=== PATIENT | male | born 1990 | race Caucasian/White ===

== ENCOUNTER 2017-06-24 18:38 | Emergency (ER) | payer OTHER ==
[~2017-06-24] VITALS: Ht 177.8 cm; Wt 65.8 kg
[~2017-06-24 18:38] MED LIST: ALPR-411 PO; COAGULATION FACTOR IX; OXYC-57 PO
[2017-06-24 18:42] VITALS: TEMP 36.7; Ht 177.8 cm; Wt 65.8 kg
[2017-06-24] MEDS ORDERED: ALPR1TAB3 PO (19:32)
[2017-06-24] MEDS ORDERED: OXYCODONE HCL IR 5 MG TAB (IMMEDIATE RELEASE) PO STA (19:43)
--- NOTE | 2017-06-24 20:34 | DIAGNOSTIC IMAGING REPORT ---
R HUMERUS MIN 2 VIEWS ROUTINE CLINICAL HISTORY: Right humeral pain status post trauma COMPARISON: None. DISCUSSION: No fractures or dislocations are visualized. IMPRESSION: No fractures identified. Electronically signed by: Rolando Roberts M.D. 06/24/2017 8:33 PM Dictated Date/Time: 06/24/2017 8:32 PM
--- NOTE | 2017-06-24 20:34 | DIAGNOSTIC IMAGING REPORT ---
R SCAPULA CLINICAL HISTORY: Right scapular pain status post trauma COMPARISON: None. DISCUSSION: No acute fractures are visualized on conventional radiographic imaging. IMPRESSION: No fractures identified. Electronically signed by: Rolando Roberts M.D. 06/24/2017 8:32 PM Dictated Date/Time: 06/24/2017 8:32 PM
--- NOTE | 2017-06-24 20:35 | DIAGNOSTIC IMAGING REPORT ---
R SHOULDER 3 VIEWS ROUTINE CLINICAL HISTORY: Right shoulder pain status post trauma COMPARISON: None. DISCUSSION: No fractures or dislocations are visualized. IMPRESSION: No fractures identified. Electronically signed by: Rolando Roberts M.D. 06/24/2017 8:33 PM Dictated Date/Time: 06/24/2017 8:33 PM
--- NOTE | 2017-06-24 20:36 | DIAGNOSTIC IMAGING REPORT ---
R FOREARM 2 VIEWS ROUTINE CLINICAL HISTORY: Right forearm pain status post trauma COMPARISON: None. DISCUSSION: No fractures or dislocations are visualized. There is mild ulnar minus variance. IMPRESSION: No fractures identified. Electronically signed by: Rolando Roberts M.D. 06/24/2017 8:34 PM Dictated Date/Time: 06/24/2017 8:34 PM
--- NOTE | 2017-06-24 20:37 | DIAGNOSTIC IMAGING REPORT ---
R ELBOW MIN 3 VIEWS ROUTINE CLINICAL HISTORY: Right elbow pain status post trauma COMPARISON: None. DISCUSSION: The fat pads are not displaced. No fractures or dislocations are visualized. IMPRESSION: No fractures or dislocations identified Electronically signed by: Rolando Roberts M.D. 06/24/2017 8:35 PM Dictated Date/Time: 06/24/2017 8:35 PM
--- NOTE | 2017-06-24 20:48 | DIAGNOSTIC IMAGING REPORT ---
CT OF THE CERVICAL SPINE CLINICAL HISTORY: Neck pain status post trauma COMPARISON STUDY: November 2012 CT DOSE: TECHNIQUE: CT scan of the cervical spine was performed from the skull base to the thoracic inlet. Images are reviewed in the axial, sagittal, and coronal planes. IV contrast was not administered for this examination. A dose lowering technique was utilized adhering to the principles of ALARA. FINDINGS: The visualized portions of the lung apices reveal no evidence of pneumothorax. There is apical emphysema. The prevertebral soft tissues are normal. No fractures or subluxations are visualized. There are mild degenerative changes most pronounced at the C5-6 and C6-7 levels. IMPRESSION: 1. No evidence of acute fracture or traumatic subluxation 2. Apical emphysema Electronically signed by: Rolando Roberts M.D. 06/24/2017 8:47 PM Dictated Date/Time: 06/24/2017 8:46 PM
--- NOTE | 2017-06-24 20:52 | DIAGNOSTIC IMAGING REPORT ---
CT THORACIC SPINE WITHOUT CT DOSE: 965.49 mGy.cm CLINICAL HISTORY: Thoracic spine pain status post trauma TECHNIQUE: Helical images were acquired in the transverse plane. Sagittal and coronal reformatted images were acquired A dose lowering technique was utilized adhering to the principles of ALARA. COMPARISON STUDY: November 2012 FINDINGS: No paraspinal masses are visualized. No fractures or traumatic subluxations are visualized. There are no pleural effusions. There are biapical blebs IMPRESSION: 1. No acute fractures or traumatic subluxations 2. Biapical blebs Electronically signed by: Rolando Roberts M.D. 06/24/2017 8:50 PM Dictated Date/Time: 06/24/2017 8:47 PM
[2017-06-24] MEDS ORDERED: ONDANSETRON INJ 2 MG/ML 2 ML VIAL IV STA (21:17)
[2017-06-24] MEDS ORDERED: LACTATED RINGER'S 1000ML 1,000 ML IV ONE (21:30)
[2017-06-24] MEDS ORDERED: FENTANYL CITRATE INJ 50 MCG/1 ML 2 ML VIAL IV ONE (21:30)
[2017-06-24] MEDS ORDERED: PROTHROMBIN COMP CONC- KCENTRA 2,500 UNIT in SYRINGE 0 ML IV SCH (22:00)
[2017-06-24 22:14] LABS: ISTAT CREATININE 1.2 mg/dl (0.6-1.3); ISTAT HEMOGLOBIN 14.6 g/dl (14.0-18.0); ISTAT IONIZED CALCIUM 1.2 mmol/l (1.12-1.32)
--- NOTE | 2017-06-24 22:28 | EMERGENCY ROOM VISIT NOTE ---
ED Visit Note First contact with patient: 19:32 Chief Complaint: I'm having severe shoulder and back pain. History of Present Illness: Mr. Llanes is a 27-year-old white male who ambulates into the ED accompanied by his mother complaining of cervical and thoracic back pain and right upper extremity pain. 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 He reports that approximately 1 PM this afternoon, approximately 5-6 hours ago, he was climbing over the fence to catch a toy slipped on wet grass and fell onto his back and shoulder. He reports at the time of the injury he did not strike his head or have a loss of consciousness and since the injury he reports he is not having any signs of head injury. Currently he is complaining of severe cervical and thoracic pain and pain throughout the entire right upper extremity from his shoulder to his wrist. He describes his pain as sharp and throbbing. He rates his discomfort 9/10. His pain is nonradiating. His pain worsens with palpation in all movements of the shoulder and elbow. He has not identified any alleviating factors related to the pain. He has not taken any medications for pain or seem hemophilia. Associated with his pain he reports he has a numbness sensation throughout the shoulder and the upper arm that extends into the elbow. He denies headache, dizziness, lightheadedness, visual changes, hearing changes , difficulty speaking, difficulty swallowing, difficulty ambulating, lumbar back pain, chest pain, shortness of breath, abdominal pain, nausea, vomiting, lower extremity weakness/numbness/tingling. Review of Systems: As noted above in history of present illness. All body systems were reviewed and found to be negative as noted above. Past Medical History: As noted above, status post unspecified fasciotomy Current Medications: Xanax. Allergies to Medications: Toradol, Keflex, tramadol, promethazine, prochlorperazine. Social History: Patient is not employed; feels safe in his home environment; he admits to tobacco use and denies alcohol use. Physical Examination: Vital Signs: Date Time Temp Pulse Resp B/P (MAP) Pulse Ox O2 Delivery O2 Flow Rate FiO2 06/24/17 18:42 36.7 75 20 131/81 96 Room Air GENERAL: 27-year-old male in moderate distress due to pain, nontoxic-appearing, afebrile and hemodynamically stable. NEUROLOGICAL: Awake, alert and oriented to person, place and time. Answering questions appropriately and following commands. Normal gait. Cranial nerves II through XII grossly intact. SKIN: Warm, dry and pink. No soft tissue trauma noted. HEENT: Atraumatic and normocephalic. PERRLA. EOMI without nystagmus. Sclera white and conjunctiva pink. No drainage from naris. No malocclusion. No intraoral trauma. Airway patent. Speech is normal and clear. Trachea midline. No jugular venous distention. BACK: Moderate tenderness throughout the C4 through C7 area and T1 through T10 area. I do not appreciate any bony deformity or crepitus. There is no swelling or ecchymosis in this area. No step-offs. No tenderness throughout the lumbar spine. No CVA tenderness. THORAX: Lungs sounds are clear to auscultation and equal bilaterally with symmetrical chest wall. No wheezing, rales or rhonchi. No crepitus, tenderness , subcutaneous air or deformities noted. HEART: Regular rate and rhythm. No gallops, rubs or murmurs are appreciated. ABDOMEN: Flat, soft and nontender. Positive bowel sounds in all quadrants. No guarding, rigidity or organomegaly. RIGHT UPPER EXTREMITY: No gross bony deformities. Moderate tenderness over the spine of the scapula and the soft tissue space below the spine of the scapula. There is no bony deformity in this area but there is swelling in the sub-spine area. There is moderate tenderness over the humeral head without bony deformity or crepitus. Tenderness throughout the humerus and extending into the elbows specifically the lateral epicondylar area. No palpable bony deformity, bony crepitus or swelling. He refused to do range of motion at the shoulder and elbow due to pain. Moderate tenderness throughout the radius in all without bony deformity, bony crepitus or swelling. No tenderness throughout the wrist or the hand. Distal radian and ulnar pulses are intact. With the shoulder and elbow stabilized he had 4/5 muscle strength in flexion, extension and radial and ulnar deviation of the wrist and switcher strength. Throughout the hand the skin was warm and pink and capillary refill is brisk. He was able to distinguish light sensations throughout the hand. OTHER EXTREMITIES: Deferred. ED Course: Patient is assessed as noted above. Patient's medication list was reviewed. Laboratory Testing: Test 06/24/17 21:17 06/24/17 21:54 06/24/17 21:55 Range/Units Bedside Hemoglobin 14.6 14.0-18.0 g/dl Bedside Hematocrit 43 42-52 % Bedside Sodium 139 135-144 mEq/L Bedside Potassium 3.6 3.3-5.0 mEq/L Bedside Chloride 98 101-112 mEq/L Bedside Total CO2 30 24-31 mEq/l Anion Gap 15.0 16-25 mmol/L Bedside Blood Urea Nitrogen 16 7-18 mg/dl Bedside Creatinine 1.2 0.6-1.3 mg/dl Bedside Glucose (other) 82 70-99 mg/dl Bedside Ionized Calcium (Doris) 1.20 1.12-1.32 mmol/l Bedside Prothrombin Time INR 1.1 0.9-1.1 CT Cervical Spine: Was reviewed by myself and read by the radiologist showing no evidence of acute fracture or traumatic subluxation, mild degenerative changes most pronounced at C5-C6 C6-C7 and apical emphysema. CT Thoracic Spine: Was reviewed by myself and read by the radiologist and shows no fractures or traumatic subluxations, no paraspinous masses, no pleural effusion, biapical blebs. Right Scapular X-Rays: Were read by myself and the radiologist showing no acute fractures. Right Shoulder X-Rays: Were read by myself and the radiologist showing no acute fractures or dislocations. Right Humerus X-Rays: Were read by myself and the radiologist showing no acute fractures or dislocations. Right Elbow X-Rays: Were read by myself and the radiologist showing no acute fractures or dislocations, no displacement of the fat pads. Right Forearm X-Rays: Were read by myself and shows no acute fractures or dislocations, mild ulnar minus variance. Patient was hydrated with lactated Ringer's. Initially patient received 5 mg of OxyIR by mouth for pain. On reassessment he reports worsening of pain and was given 100 g of fentanyl IV and 4 mg of Zofran IV. Patient's case was reviewed with Dr. Koo; we agreed on diagnostic approach, treatment, disposition and plan. Patient and family members were concerned about needing factor IX because of his hemophilia; I did consult Dr. Gamble, horse breaker, she reported our hospital did not have any factor IX and she recommended contacting the horse breaker fellow at [facility]. I did consult Dr. Tolbert, horse breaker fellow [facility]; after reviewing the case it was recommended that the patient be transferred [facility] for specialty care and treatment and to start prothrombin complex concentrate. I did recontact Dr. Gamble for dosing of the concentrate and she recommended 2, 500 units. The concentrate was ordered and was administered. Patient was educated about today's findings. Patient was then transferred to [facility] via ALS ambulance. Clinical Impression: Fall. Shoulder hematoma. Cervical and thoracic back pain. Right upper extremity pain. Disposition and Plan: Patient to be transferred to [facility] via ambulance.
[2017-06-24 23:03] VITALS: BP 127/73; PULSE 71; O2SAT 98
== END 2017-06-24 23:04 | disposition short-term general hospital (02) ==
LOC: C.EDB 18:40 → C.EDD 23:04
DX: S40.019A Contusion of unspecified shoulder, initial encounter (principal); M54.9 Dorsalgia, unspecified; M79.601 Pain in right arm; W19.XXXA Unspecified fall, initial encounter; F17.200 Nicotine dependence, unspecified, uncomplicated

== ENCOUNTER 2017-09-02 13:47 | Emergency (ER) | payer OTHER ==
[~2017-09-02] VITALS: Ht 177.8 cm; Wt 62.7 kg
[~2017-09-02 13:47] MED LIST changes: -ALPR-411 PO; +ALPR1TAB3 PO; -COAGULATION FACTOR IX; -OXYC-57 PO
[2017-09-02 13:54] VITALS: Ht 177.8 cm; Wt 62.7 kg
--- NOTE | 2017-09-02 14:20 | EMERGENCY ROOM VISIT NOTE ---
History Report prepared by Scribe: Mignon Lynne Under the Supervision of: Dr. Matias Bishop D.O. First contact with patient: 14:00 Chief Complaint: LEG PAIN,LEG INJURY Stated Complaint: SWELLING AND HEMATOMA OF RIGHT MORIN AND CALF History of Present Illness The patient is a 27 year old male who presents to the Emergency Room with complaints of persistent pain and swelling in his right calf since yesterday. He rates his discomfort as a 9/10 in severity and states he felt a "sharp snap" when the pain started. He denies any recent trauma to his leg or recent falls. He denies any tingling or numbness in the leg. He is able to walk on the leg, but states he has been supporting himself on his left leg due to pain. The patient has a history of factor 9 hemophilia, for which he follows with [facility] Hematology/Oncology. Yesterday around 1200, he infused himself with Alprolix and states his most recent infusion before that was about 2 weeks ago. The patient denies headache, change in vision, fevers, chest pain, shortness of breath, nausea, vomiting, diarrhea, pain with urination, and melena. Source of History: patient Onset: yesterday Position: leg (right) Symptom Intensity: 9/10 Timing: other (persistent) Modifying Factors (Worsening): other (walking) Associated Symptoms: No fevers, No headache, No chest pain, No SOB, No nausea, No vomiting, No melena, No diarrhea, No urinary symptoms, No numbness ( in the right leg) Review of Systems See HPI for pertinent positives & negatives. A total of 10 systems reviewed and were otherwise negative. Past Medical & Surgical Medical Problems: (1) Hemophilia (2) Migraines Social History Smoking Status: Current Every Day Smoker Alcohol Use: occasionally Drug Use: none Marital Status: single Housing Status: lives with family Occupation Status: unemployed Current/Historical Medications Scheduled Alprazolam (Xanax), 1 MG PO TID Buspirone Hcl (Buspar), 15 MG PO BID Cetirizine Hcl (Zyrtec), 10 MG PO DAILY Coagulation Factor IX (Recomb) (Alprolix), Unknown Dose IJ WK Oxycodone Hcl (Oxycontin), 15 MG PO QID Allergies Coded Allergies: Ketorolac Tromethamine (Verified Allergy, Unknown, irritates the tissues, 09/02/17) pt Morphine (Unverified Allergy, Unknown, ., 09/02/17) Prochlorperazine (Verified Allergy, Unknown, rls, 09/02/17) pt Promethazine (Verified Allergy, Unknown, rls, 09/02/17) pt Tramadol (Verified Allergy, Unknown, irritates the tissues, 09/02/17) pt Physical Exam Vital Signs Date Time Temp Pulse Resp B/P (MAP) Pulse Ox O2 Delivery O2 Flow Rate FiO2 09/02/17 17:41 67 18 149/90 99 Room Air 09/02/17 16:44 36.9 74 18 145/85 98 Room Air 09/02/17 15:03 36.8 67 18 145/85 98 Room Air 09/02/17 13:54 36.6 87 18 139/86 97 Room Air Physical Exam GENERAL: Sitting up in bed, alert, well appearing, well nourished, no distress, non-toxic EYE EXAM: normal conjunctiva. OROPHARYNX: no exudate, no erythema, lips, buccal mucosa, and tongue normal and mucous membranes are moist NECK: supple, no nuchal rigidity, no adenopathy, non-tender LUNGS: Clear to auscultation. Normal chest wall mechanics HEART: no murmurs, S1 normal and S2 normal ABDOMEN: abdomen soft, non-tender, normo-active bowel sounds, no masses, no rebound or guarding. BACK: Back is symmetrical on inspection and there is no deformity, no midline tenderness, no CVA tenderness. SKIN: no rashes and no bruising UPPER EXTREMITIES: upper extremities are grossly normal. LOWER EXTREMITIES: Bruising and faint swelling to right distal morin, calves are equal bilaterally. DP's 2/4, full active and passive ROM of the right ankle, hip and knee. NEURO EXAM: Normal sensorium, cranial nerves II-XII grossly intact, normal speech, no gross weakness of arms, no gross weakness of legs. Gross sensation intact. Medical Decision & Procedures ER Provider Diagnostic Interpretation: Radiology results as stated below per my review and the radiologist's interpretation: R TIBIA/FIBULA 2 VIEWS ROUTINE CLINICAL HISTORY: r morin pain COMPARISON: None. DISCUSSION: No evidence for fracture or acute bony abnormality of the tibia or fibula. At the mid aspect of the fibula posteriorly is a well-corticated focal defect of the posterior cortex. This potentially relates to old trauma, and does not appear to relate to an acute process. There is no evidence for soft tissue swelling. IMPRESSION: 1. No acute bony abnormality. 2. Focal cortical defect measuring 5 mm posterior cortex mid fibula. 3. This defect is well-corticated and appears to be a nonacute incidental finding unless clinically indicated otherwise. The above report was generated using voice recognition software. It may contain grammatical, syntax or spelling errors. Electronically signed by: Harry Macdonald M.D. 09/02/2017 2:30 PM Laboratory Results 09/02/17 14:10 Red Blood Count 4.55, Mean Corpuscular Volume 90.1, Mean Corpuscular Hemoglobin 30.8, Mean Corpuscular Hemoglobin Concent 34.1, Mean Platelet Volume 9.7, Neutrophils (%) (Auto) 66.3, Lymphocytes (%) (Auto) 20.3, Monocytes (%) (Auto) 11.9, Eosinophils (%) (Auto) 0.8, Basophils (%) (Auto) 0.4, Neutrophils # (Auto ) 6.00, Lymphocytes # (Auto) 1.84, Monocytes # (Auto) 1.08, Eosinophils # (Auto ) 0.07, Basophils # (Auto) 0.04 09/02/17 14:10 Test 09/02/17 14:10 White Blood Count 9.06 K/uL (4.8-10.8) Red Blood Count 4.55 M/uL (4.7-6.1) Hemoglobin 14.0 g/dL (14.0-18.0) Hematocrit 41.0 % (42-52) Mean Corpuscular Volume 90.1 fL (80-100) Mean Corpuscular Hemoglobin 30.8 pg (25-34) Mean Corpuscular Hemoglobin Concent 34.1 g/dl (32-36) Platelet Count 283 K/uL (130-400) Mean Platelet Volume 9.7 fL (7.4-10.4) Neutrophils (%) (Auto) 66.3 % Lymphocytes (%) (Auto) 20.3 % Monocytes (%) (Auto) 11.9 % Eosinophils (%) (Auto) 0.8 % Basophils (%) (Auto) 0.4 % Neutrophils # (Auto) 6.00 K/uL (1.4-6.5) Lymphocytes # (Auto) 1.84 K/uL (1.2-3.4) Monocytes # (Auto) 1.08 K/uL (0.11-0.59) Eosinophils # (Auto) 0.07 K/uL (0-0.5) Basophils # (Auto) 0.04 K/uL (0-0.2) RDW Standard Deviation 43.3 fL (36.4-46.3) RDW Coefficient of Variation 13.2 % (11.5-14.5) Immature Granulocyte % (Auto) 0.3 % Immature Granulocyte # (Auto) 0.03 K/uL (0.00-0.02) Prothrombin Time 12.9 SECONDS (9.0-12.0) Prothromb Time International Ratio 1.2 (0.9-1.1) Activated Partial Thromboplast Time 59.4 SECONDS (21.0-31.0) Partial Thromboplastin Ratio 2.3 Anion Gap 6.0 mmol/L (3-11) Est Creatinine Clear Calc Drug Dose 96.4 ml/min Estimated GFR () 115.7 Estimated GFR (Non- 99.8 BUN/Creatinine Ratio 10.8 (10-20) Calcium Level 9.3 mg/dl (8.5-10.1) Laboratory results per my review. Medications Administered Medications (Trade) Dose Ordered Sig/Macrina Route Start Time Stop Time Status Last Admin Dose Admin Potassium Chloride (Klor-Con M10) 40 meq NOW STAT PO 09/02/17 14:55 09/02/17 14:56 DC 09/02/17 15:03 40 MEQ Hydromorphone HCl (Dilaudid Inj) 0.5 mg NOW STAT IV 09/02/17 16:39 09/02/17 16:40 DC 09/02/17 16:44 0.5 MG ED Course ED COURSE: Vital signs were reviewed and showed normal vital signs. The patients medical record was reviewed The above diagnostic studies were performed and reviewed. ED treatments and interventions as stated above. 1408: The patient was evaluated in room C11. A complete history and physical examination was performed. 1428: I discussed the patients case with Dr. Boyd, [facility] Hematology/Oncology. We will call him back when the remainder of the patients studies are back. 1455: Potassium Chloride 40 meq PO. 1511: I discussed the patients case with Dr. Boyd, [facility] Hematology/Oncology. He recommends the patient call the clinic tomorrow for follow up. 1600: I updated the patient on his results and my conversation with Dr. Boyd. He is requesting he be transferred to [facility] for further evaluation and management. 1614: I spoke with Dr. Boyd again. I discussed the patients desire to be transferred. He has accepted the patient as a transfer. 1635: Upon reevaluation, the patient is resting comfortably. I discussed my findings with the patient and he understands and agrees with the treatment plan. He states he prefers to drive to [place] via private vehicle. 1650: I reevaluated the patient. He states his initial ride cannot drive him to [place]. His significant other asked him how she is going to get home and they are going to have someone come pick them up, and drive him to [place]. 1639: Dilaudid 0.5 mg IV. 1736: Nursing informed me the patient states he cannot get down to [place] tonight. 1739: I spoke with the patient. He states he will go home first and then go down to [place]. I told him he must leave here and go directly to [place]. If he is unable to do that, we can provide an ambulance for him. He states he will leave the ED and go directly to [place] via private vehicle. Based on the patients age, coexisting illnesses, exam and lab findings the decision to treat as an inpatient was made. The patient remained stable while under my care. The patient will be evaluated for further management. Medical Decision Etiologies such as fracture, dislocation, neurovascular compromise, compartment syndrome, soft tissue injury, as well as others were entertained. Patient is a 27-year-old male with factor IX deficiency who presents to ER for severe pain in his right distal morin with a faint amount of swelling. No trauma. No falls. Patient has had spontaneous bleeds before. He did give himself a, the factor IX yesterday thousand units. Discussed with [facility] where he follows with on several occasions. They were agreeable and accepted the patient. CBC was unremarkable. Potassium was low at 2.8. This was repleted. PTT was elevated. INR was 1.2. X-rays show no acute fractures. We did not have factor IX. Patient was transferred to [facility] via private vehicle after multiple discussions. I did offer ambulance transport but therefore others to be transferred head in the hospital and noted that this may be a little bit. He was able to go via private vehicle and noted he would go directly to the ER for admission. Medication Reconcilliation Current Medication List: was personally reviewed by me Blood Pressure Screening Patient's blood pressure: Elevated blood pressure Blood pressure disposition: Referred to PCP Consults Time Called: 1415 Consulting Physician: Dr. Boyd, [facility] Hematology Returned Call: [phone] I discussed the patients case with Dr. Boyd, [facility] Hematology/ Oncology. We will call him back when the remainder of the patients studies are back. Impression Primary Impression: Factor IX deficiency Additional Impressions: Hypokalemia Leg pain, right Leg hematoma Hemophilia Scribe Attestation The scribe's documentation has been prepared under my direction and personally reviewed by me in its entirety. I confirm that the note above accurately reflects all work, treatment, procedures, and medical decision making performed by me. Departure Information Dispostion Transfer Acute Care Facility (The patient has been accepted as a transfer to [facility]) Referrals Juan Ly M.D. (PCP) Patient Instructions My [facility] Problem Qualifiers Additional Impressions: Leg hematoma Encounter type: initial encounter Laterality: right Qualified Codes: S80.11XA - Contusion of right lower leg, initial encounter
[2017-09-02 14:25] LABS: MEAN CELL VOLUME 90.1 fL (80-100); MEAN CORPUSCULAR HEMOGLOBIN 30.8 pg (25-34); MEAN CORPUSCULAR HGB CONC 34.1 g/dl (32-36); MEAN PLATELET VOLUME 9.7 fL (7.4-10.4); PLATELET COUNT 283 K/uL (130-400); RED CELL DISTRIBUTION WIDTH CV 13.2 % (11.5-14.5); RED CELL DISTRIBUTION WIDTH SD 43.3 fL (36.4-46.3); WHITE BLOOD COUNT 9.06 K/uL (4.8-10.8)
--- NOTE | 2017-09-02 14:31 | DIAGNOSTIC IMAGING REPORT ---
R TIBIA/FIBULA 2 VIEWS ROUTINE CLINICAL HISTORY: r morin pain COMPARISON: None. DISCUSSION: No evidence for fracture or acute bony abnormality of the tibia or fibula. At the mid aspect of the fibula posteriorly is a well-corticated focal defect of the posterior cortex. This potentially relates to old trauma, and does not appear to relate to an acute process. There is no evidence for soft tissue swelling. IMPRESSION: 1. No acute bony abnormality. 2. Focal cortical defect measuring 5 mm posterior cortex mid fibula. 3. This defect is well-corticated and appears to be a nonacute incidental finding unless clinically indicated otherwise. The above report was generated using voice recognition software. It may contain grammatical, syntax or spelling errors. Electronically signed by: Harry Macdonald M.D. 09/02/2017 2:30 PM Dictated Date/Time: 09/02/2017 2:27 PM
[2017-09-02] MEDS ORDERED: CETI10TA10 PO (14:40)
[2017-09-02] MEDS ORDERED: BUSP15TA70 PO (14:40)
[2017-09-02] MEDS ORDERED: OXYC15TA89 PO (14:40)
[2017-09-02 14:42] LABS: INR 1.2 (0.9-1.1)
[2017-09-02 14:45] LABS: PTT PATIENT 59.4 SECONDS (21.0-31.0)
[2017-09-02 14:47] LABS: BASO % 0.4 %; BASO ABS # 0.04 K/uL (0-0.2); EOS % 0.8 %; EOS ABS # 0.07 K/uL (0-0.5); IG# 0.03 K/uL (0.00-0.02); LYMPH % 20.3 %; LYMPH ABS # 1.84 K/uL (1.2-3.4); MONO % 11.9 %; MONO ABS # 1.08 K/uL (0.11-0.59); NEUT % 66.3 %
[2017-09-02 14:53] LABS: CALCIUM 9.3 mg/dl (8.5-10.1); CREATININE 1.03 mg/dl (0.60-1.40); POTASSIUM 2.8 mmol/L (3.5-5.1)
[2017-09-02] MEDS ORDERED: POTASSIUM CHLORIDE 10 MEQ TABCR PO STA (14:55)
[2017-09-02] MEDS ORDERED: HYDROmorphone INJ 0.5 MG/0.5 ML SYR IV STA (16:39)
[2017-09-02 16:44] VITALS: TEMP 36.9
[2017-09-02 17:41] VITALS: BP 149/90; PULSE 67; O2SAT 99
[2017-12-21] MEDS ORDERED: [UNRECOGNIZED DRUG - CODE] IJ (14:40)
[2017-12-21] MEDS ORDERED: BUPR1SUB23 PO (22:21)
[2017-12-21] MEDS ORDERED: ZOLP10TA PO (22:21)
== END 2017-09-02 17:53 | disposition short-term general hospital (02) ==
LOC: C.EDB 13:48 → C.EDC 17:53
DX: D67 Hereditary factor IX deficiency (principal); E87.6 Hypokalemia; M79.81 Nontraumatic hematoma of soft tissue; F17.200 Nicotine dependence, unspecified, uncomplicated; R79.1 Abnormal coagulation profile; R03.0 Elevated blood-pressure reading, without diagnosis of hypertension; Z79.891 Long term (current) use of opiate analgesic